=== PATIENT | female | born 1995 | race Caucasian/White ===

== ENCOUNTER 2016-07-09 22:43 | Inpatient (IN) | payer MEDICAID ==
[2016-04-22 22:06] VITALS: BMI 27.4
[2016-07-09] MEDS ORDERED: Vaccine Screening Complete SCH (23:00)
[2016-07-09] MEDS ORDERED: BUTORPHANOL 1 MG/ML VIAL IV PRN (23:07)
[2016-07-09] MEDS ORDERED: OXYTOCIN 1,000 ML IV ONE (23:18)
[2016-07-09] MEDS ORDERED: LIDOCAINE 1% 30 ML VIAL (PRESERVATIVE FREE) ONE (23:18)
[2016-07-09 23:28] LABS: AUTOMATED BASOPHIL 0.2 % (0-2); AUTOMATED EOSINOPHIL 0.8 % (0-5); AUTOMATED LYMPH 17.1 % (17-44); AUTOMATED MONOCYTE 10.5 % (3-10); AUTOMATED NEUTROPHIL 71.4 % (45-76); MPV 8.5 fL (7.4-10.4)
[2016-07-09] MEDS ORDERED: LR 1,000 ML IV SCH (23:45)
[2016-07-10] MEDS ORDERED: Fentanyl/Bupivacaine 100 ML EPI ONE (00:20)
--- NOTE | 2016-07-10 00:22 | HISTPHYS ---
- HISTORY OF PRESENT ILLNESS Age: 21 Estimated Due Date: 07/16/16 Gestational Age: 39 : 4 Para: 3 Patient Presents to:: Labor & Delivery Presents for:: Leaking Fluid (since 6 pm) Current : No Complications, GBS - - REVIEW OF SYSTEMS Reports/Denies: Reports: Contractions (Strong and regular), Movement ( Normal ), Leaking Fluid (clear). Denies: Vaginal Bleeding, Fever Pain: Reports: Abdominal, Back - ALLERGIES Allergies Allergy/AdvReac Type Severity Reaction Status Date / Time Penicillins Allergy Unknown Unknown Verified 07/09/16 22:58 - PAST MEDICAL HISTORY Reports: Depression (Post ) - PAST SURGICAL HISTORY Reports: None - FAMILY HISTORY Family History: Noncontributory - SOCIAL HISTORY Travel Outside of [place] in the Last 3 Months?: No Smoking Status: Former smoker Social History: Denies: Alcohol Use Marital Status: - GENITOURINARY HISTORY Gynecologic History: Reports: None HX : 4 Para: 3 Live Deliveries (# of pregnancies resulting in a live ): 3 Hx Multiple Births: No 2 Infant Sex: Female Delivery Type: Vaginal Weight: 6-3 Weeks Gestation: 38-5 3 Infant Sex: Male Delivery Type: Vaginal Weight: 6-11 Weeks Gestation: 38-4 1 Infant Sex: Female Delivery Type: Vaginal Weight: 6-15 Weeks Gestation: 40 - PHYSICAL EXAM Vital Signs:: Temperature: 98.0 F (07/09/16 22:43) HR: 108 (07/09/16 22:43) RR: 20 (07/09/16 22:43) BP: 128/70 (07/09/16 22:43) Pulse Ox: () GENERAL: Alert, Oriented, Distress (Moderate) ABDOMEN: Gravid, Non-Distended, Non-Tender, Soft Fundal Height (cm): 39 GENITOURINARY: Normal. negative: Lesions, Mass, Rash, Swelling, Discharge MUSCULOSKELETAL: Normal. negative: Atrophy EXTERMITIES: Moves All Extremeties. negative: Pain/Tenderness Dilation (cm): 4 Effacement (%): 80 Station: -2 Heart Rate: 130 Reactive, Minimal Variability. negative: Decelerations Contractions: Regular Amniotic Fluid: Clear - ASSESSMENT (ACTIVE PROBLEMS) (1) SROM (spontaneous rupture of membranes) Acute [id number] - Present on Admission: Yes - PLAN Admit, Pain Management
[2016-07-10] MEDS ORDERED: METOCLOPRAMIDE 10 MG/2 ML VIAL IV PRN (01:08)
[2016-07-10] MEDS ORDERED: LR 500 ML IV ONE (01:08)
[2016-07-10] MEDS ORDERED: ONDANSETRON HCL 4 MG/2 ML VIAL IV PRN (01:08)
[2016-07-10] MEDS ORDERED: DIPHENHYDRAMINE 50 MG/ML VIAL IV PRN (01:08)
[2016-07-10] MEDS ORDERED: NALOXONE 0.4 MG/ML AMPULE IV PRN (01:08)
[2016-07-10] MEDS ORDERED: LR 500 ML IV PRN (01:08)
[2016-07-10] MEDS ORDERED: EPHEDrine 50 MG/ML VIAL IV PRN ×2 (01:08→01:11)
--- NOTE | 2016-07-10 01:10 | HIM.ANES ---
Anesthesia Evaluation & Plan Diagnoses: labor pain Consented Procedure: labor epidural Surgeon:: Aiden Fine - Focused Review of Systems Cardiac History: No: Hx Cardiac Disorders HEENT: No: Loose/Decaying Teeth, Removable Dental Work, Other HEENT Problems Respiratory: No: Hx Asthma Gastrointestinal: No: Hx Liver disease, Hx Gastrointestinal Disorders Neurological/Musculoskeletal: No: Hx Syncope, Hx Neurological Disorders Psychological: No Hx Mental/Emotional Disorders Blood/Autoimmune: No: Hx Blood Transfusions, Hx Anemia, Hx AIDS, Hx Sickle Cell Disease Smoking Status: Former smoker Past Social History: Denies: Alcohol Use - Focused Physical Exam NPO since: after Midnight Mallampati: Class I Thyromental Distance: Greater than 3 Neck: Full Range of Motion Dental: Normal - no significant findings Cardiovascular/Chest: Normal (RRR no mumurs or rubs.) Respiratory: Lungs clear. negative: Rhonchi, Wheezing Any problems with anesthesia, including nausea and vomiting?: No Any relatives with a history of Malignant Hyperthermia?: No Does patient have a history of Malignant Hyperthermia?: No Beta Ludy given (if appropriate): N/A Does the patient have a history of Motion Sickness-: No Other: Problem List Problem Status Onset SROM (spontaneous rupture of membranes) Acute Vaginal delivery Active 38 weeks gestation of Acute False labor Acute Term of male Acute CBC/BMP/Other 07/09/16 23:17 Allergies Allergy/AdvReac Type Severity Reaction Status Date / Time Penicillins Allergy Unknown Unknown Verified 07/09/16 22:58 Home Medications Medication Instructions Recorded Last Taken Type No Home Medications 07/06/16 Unknown History Height and Weight Patient's height 5 ft 2 in Patient's weight 79.379 kg BMI 27.4 Vital Signs Temperature 98.0 F 07/09/16 22:43 Pulse Rate 108 07/09/16 22:43 Respiratory Rate 20 07/09/16 22:43 Blood Pressure 128/70 07/09/16 22:43 Pulse Oxygen Saturation METS - Level of Activity: Climbing stairs(1 flight),walking level ground, running short distance - Anesthetic Plan Anesthesia Type: Epidural ASA Class: 2 -: I have examined this patient and reviewed the medical record. The patient has been assessed prior to anesthesia. Risks and benefits of anesthesia and anesthetic technique options have been discussed and all questions answered. The patient accepts the risk and desires me to proceed with the planned anesthetic.
--- NOTE | 2016-07-10 01:11 | HIM.ANESP ---
Procedure Note DATE OF PROCEDURE: 07/10/16 PREOPERATIVE DIAGNOSIS: Labor Pain Control. POSTOPERATIVE DIAGNOSIS: Same PROCEDURE: Epidural PERFORMING PROVIDER: Ashely Ramirez MD DIAGNOSIS: Labor SURGEON: Rody TIME OUT: 47 Anesthesia START time: 47 Anesthesia STOP (Delivery) Time : 02:30 MEDICATIONS: INF Bupivacaine 0.125% + Fentanyl 3mcg/ml ml/hr NEEDLE: Tuohy 17G STERILE BARRIERS: sterile x 3, mask, sterile gloves. APPROACH: Midline ATTEMPTS:1 COMPLICATIONS: None. BLOOD LOSS: 0 cubic centimeters. 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 Epidural Risk, benefits and alternatives of the procedure were explained and questions answered. Informed consent was obtained, confirmed with patient and on chart. Time out was performed. Contraction, Pulse oximetry, EKG and BP monitoring were established. The patient is a sitting position and lumbar area was prepped and draped in a sterile manner. Skin anesthesia was obtained with 1% Xylocaine infiltration. The Epidural was done in the usual manner. A Tuohy needle was inserted with loss of resistance to NS @ 6cm. Local anesthetic was injected in incremental volumes with negative aspirations throughout, Bolus dose: Lidocaine 1 % 5 cc. There was no pain on injection. Epidural catheter threaded 5 cm into epidural space. Test dose Lidocaine 1.5 % with epinephrine 1:200,000, 3 ml via epidural catheter. Negative test dose. SaO2 98% EKG SR Loading Dose 0 mcg/ml Fentanyl Infusing Dose Bupivacaine 0.125% + Fentanyl 3mcg/ml ml/hr See Watch Child Record (chart) Patient tolerated the procedure well without complications.
[2016-07-10] MEDS ORDERED: Fentanyl/Bupivacaine 100 ML EPI SCH (02:00)
[2016-07-10] MEDS ORDERED: AMMONIA SPIRITS AMPULE NAS ONE (02:28)
--- NOTE | 2016-07-10 02:48 | OBDELNOTE ---
Delivery Note - Problem/Diagnosis (1) SROM (spontaneous rupture of membranes) Status: Acute (2) 39 weeks gestation of Status: Acute (3) Vaginal delivery Status: Active - Admitting Diagnosis Reason for Visit: Contractions, Leaking Fluid Admission Date: 07/09/16 Admission time: 22:59 Gestational Age: 39 - Procedures Procedure(s): None Labor Anesthesia/Analgesia: IV Medication, Epidural Date: 07/10/16 Time: 02:30 Spontaneous Vaginal Delivery Presentation: Vertex Episiotomy: None Laceration: None EBL: 200 Fluid: Clear Placenta: Spontaneous Description: Normal - Procedures Procedures: None - Infant Data Order: Novak Infant Sex: Male Weight: 3.232 kg (1min): 8 (5min): 9 Feeding Plans for : Breast Plans Circumcision: Yes Bison Complications: No Complications Bison to:: LDRP/Mother's Room - /Operative Complications /Op Complications: None Discharge Planning - REASON FOR ADMISSION Patient Presents to:: Labor & Delivery Reason for Visit: Leaking Fluid (since 6 pm) - DISCHARGE INSTRUCTIONS Prescriptions: Hydrocodone Bit/Acetaminophen [Lortab 5/325] 1 - 2 tab PO Q4H PRN #30 tab PRN Reason: Pain Ibuprofen Tablet [Motrin] 800 mg PO Q6-8H PRN #30 tab PRN Reason: Pain
--- NOTE | 2016-07-10 02:50 | PCM.DCS92 ---
<Aiden Fine - Last Filed: 07/10/16 02:49> - Primary/Secondary Discharge Diagnoses (1) SROM (spontaneous rupture of membranes) Acute [id number] - Present on Admission: Yes (2) 39 weeks gestation of Acute Z3A.39 - 39 WEEKS GESTATION OF Present on Admission: Yes (3) Vaginal delivery Active O80 - ENCOUNTER FOR FULL-TERM UNCOMPLICATED DELIVERY Present on Admission: No - HOSPITAL COURSE /Op Complications: None - DISCHARGE INSTRUCTIONS Discharge Disposition: Home Discharge Condition: Good Cognitive Discharge Status: Unimpaired Fuctional Discharge Status: Independent Patient Leaving with Prescriptions?: Yes Prescriptions: Hydrocodone Bit/Acetaminophen [Lortab 5/325] 1 - 2 tab PO Q4H PRN #30 tab PRN Reason: Pain Ibuprofen Tablet [Motrin] 800 mg PO Q6-8H PRN #30 tab PRN Reason: Pain - Diet Diet at Discharge: Regular - Activity Activity: No Heavy Lifting, Pelvic Rest, No Driving No Driving for: While using pain medications - Instructions Call Physician for: Severe Abdominal Cramps, Foul Smelling Discharge, Pain/ Redness in Calf/Leg, Soaking Pad in 1 hr, Temperature Above 100.4 - Incision Incision, Lacerations, or Tears: No - DC Summary Notes Discharge Medications: *See "Discharge Medication List" for a complete list of Home Medications and Discharge Medications.* Obstetric Hospital Course - Admitting Diagnosis Reason for Visit: Contractions, Leaking Fluid Admission Date: 07/09/16 Admission time: 22:59 Gestational Age: 39 - Procedures Procedure(s): None Labor Anesthesia/Analgesia: IV Medication, Epidural Date: 07/10/16 Time: 02:30 Spontaneous Vaginal Delivery Presentation: Vertex Episiotomy: None Laceration: None EBL: 200 Fluid: Clear Placenta: Spontaneous Description: Normal - Procedures Procedures: None - Data Order: Novak Sex: Male Weight: 3.232 kg (1min): 8 (5min): 9 Feeding Plans for : Breast Plans Circumcision: Yes Complications: No Complications to:: LDRP/Mother's Room - /Operative Complications /Op Complications: None <Miles Velasquez - Last Filed: 07/12/16 10:10> - Primary/Secondary Discharge Diagnoses (1) care following vaginal delivery Acute Z39.2 - ENCOUNTER FOR ROUTINE FOLLOW-UP - Instructions Discontinue use of:: Alcohol, All Illegal Substances, All Types of Tobacco - DC Summary Notes Discharge Medications: *See "Discharge Medication List" for a complete list of Home Medications and Discharge Medications.*
[2016-07-10] MEDS ORDERED: BISACODYL 10 MG SUPP PR PRN (02:56)
[2016-07-10] MEDS ORDERED: ACETAMINOPHEN 325 MG/TAB TABLET PO PRN (02:56)
[2016-07-10] MEDS ORDERED: SODIUM CHLORIDE 0.9% 3 ML FLUSH FLUSH PRN (02:56)
[2016-07-10] MEDS ORDERED: DIBUCAINE OINTMENT 1 OZ TUBE TOP PRN (02:56)
[2016-07-10] MEDS ORDERED: OXYTOCIN 1,000 ML IV ONE (02:56)
[2016-07-10] MEDS ORDERED: HYDROCORTISONE 25 MG SUPP PR PRN (02:56)
[2016-07-10] MEDS ORDERED: Pharmacy Order Set Alert SCH (03:00)
[2016-07-10] MEDS: OXYCODONE HCL 5 MG TABLET PO PRN ×5 (04:51→23:17)
[2016-07-10] MEDS: IBUPROFEN 800 MG TAB PO SCH ×4 (04:51→23:17)
[2016-07-10] MEDS ORDERED: MEASLES,MUMPS,RUBELLA VACCINE SQ ONE (08:00)
[2016-07-10] MEDS ORDERED: PNEUMOCOCCAL 0.5 ML VIAL IM ONE (08:00)
[2016-07-10] MEDS: SODIUM CHLORIDE 0.9% 3 ML FLUSH FLUSH SCH (09:01)
[2016-07-10] MEDS: LANOLIN OINTMENT 0.25 OZ TUBE TOP PRN (09:02)
[2016-07-10] MEDS ORDERED: LIDOCAINE 2% 10 ML (PRESERVATIVE FREE) VIAL INF ONE (10:00)
--- NOTE | 2016-07-10 11:33 | OBGYNPROG ---
- Subjective Post Day: 0 Reports: Ambulating, Tolerating Regular Diet, Voiding Freely, Light Bleeding. Denies: Complaints, Heavy Bleeding Pain: Reports: Well Managed - Objective Vital Signs: Temperature: 97.5 F (07/10/16 09:13) HR: 70 (07/10/16 09:13) RR: 18 (07/10/16 09:13) BP: 110/56 (07/10/16 09:13) Pulse Ox: () General: Alert, Oriented, No Acute Distress ABDOMEN: Non-Distended, Non-Tender, Soft Fundus: At Umbilicus, Firm. Denies: Tender Lochia: Moderate EXTERMITIES: Moves All Extremeties. Denies: Pain/Tenderness OBGYN Progress Note - ASSESSMENT (1) SROM (spontaneous rupture of membranes) Status: Acute Code(s): [id number] - (2) 39 weeks gestation of Status: Acute Code(s): Z3A.39 - 39 WEEKS GESTATION OF (3) Vaginal delivery Status: Active Code(s): O80 - ENCOUNTER FOR FULL-TERM UNCOMPLICATED DELIVERY Comment: Doing well - PLAN Routine Care
--- NOTE | 2016-07-10 17:41 | SC.ANESPOS ---
Post-Anesthesia Note LOC: Fully Awake Post-Anesthesia Assessment: Awake, Returned to Baseline, Hemodynamically Stable , Pain Control Adequate Phase I & II Recovery Complete: Yes Apparent Anesthesia Complication: No : N - Vital Signs Blood Pressure: 83/44 Pulse: 63 Resp Rate: 18 Temp: 97.7 F
[2016-07-11] MEDS: OXYCODONE HCL 5 MG TABLET PO PRN ×2 (03:04→11:03)
[2016-07-11] MEDS: IBUPROFEN 800 MG TAB PO SCH ×3 (07:12→19:23)
--- NOTE | 2016-07-11 07:18 | OBGYNPROG ---
- Subjective Post Day: 1 Reports: Ambulating, Out of Bed, Voiding Freely, Moderate Lochia. Denies: Tolerating Regular Diet (unable to keep solids down all day yesterday (did not tell nurses), keeping liquids down without problem), Headache, Palpitations, Chest Pain, Shortness of Breath Pain: Reports: Well Managed (but right thigh pain, no calf pain, slight tingling in right thigh since delivery) - Objective Vital Signs: H&H Results 07/09/16 23:17 Hgb 10.2 L Hct 30.7 L Laboratory Results - last 24 hr 07/09/16 23:17 RPR Nonreactive Last Vital Signs Temp 98.0 F 07/11/16 05:33 Pulse 65 07/11/16 05:33 Resp 18 07/11/16 05:33 BP 90/44 L 07/11/16 05:33 Pulse Ox General: Alert, Oriented, No Acute Distress Cardiovascular/Chest: Normal Respiratory: negative: Accessory Muscle Use Fundus: Firm. Denies: Tender MUSCULOSKELETAL: Normal EXTERMITIES: Moves All Extremeties. Denies: Edema FEDERICO'S SIGN: Denies: Bilateral OBGYN Progress Note - ASSESSMENT (1) care following vaginal delivery Status: Acute Code(s): Z39.2 - ENCOUNTER FOR ROUTINE FOLLOW-UP - PLAN Routine Care, Supportive Care pt must be able to tolerate regular diet prior to discharge home. pain in leg likely from positioning during pushing for delivery. no signs of dvt. supportive care discussed and patient reassured.
[2016-07-11] MEDS: LANOLIN OINTMENT 0.25 OZ TUBE TOP PRN (12:50)
[2016-07-11] MEDS ORDERED: ONDANSETRON HCL 4 MG/2 ML VIAL IV PRN (14:02)
[2016-07-12] MEDS: IBUPROFEN 800 MG TAB PO SCH ×2 (01:33→07:34)
[2016-07-12 06:30] VITALS: BP 96/54; PULSE 64; TEMP 98
[2016-07-12] MEDS: LR 1,000 ML IV SCH ×2 (07:34→10:38)
[2016-07-12] MEDS: SODIUM CHLORIDE 0.9% 3 ML FLUSH FLUSH SCH (07:34)
--- NOTE | 2016-07-12 09:33 | DIRPT ---
CLINICAL DATA: Right calf pain. state. EXAM: RIGHT LOWER EXTREMITY VENOUS DOPPLER ULTRASOUND TECHNIQUE: Rogel-scale sonography with graded compression, as well as color Doppler and duplex ultrasound were performed to evaluate the lower extremity deep venous systems from the level of the common femoral vein and including the common femoral, femoral, profunda femoral, popliteal and calf veins including the posterior tibial, peroneal and gastrocnemius veins when visible. The superficial great saphenous vein was also interrogated. Spectral Doppler was utilized to evaluate flow at rest and with distal augmentation maneuvers in the common femoral, femoral and popliteal veins. COMPARISON: None. FINDINGS: Contralateral Common Femoral Vein: Respiratory phasicity is normal and symmetric with the symptomatic side. No evidence of thrombus. Normal compressibility. Common Femoral Vein: No evidence of thrombus. Normal compressibility, respiratory phasicity and response to augmentation. Saphenofemoral Junction: No evidence of thrombus. Normal compressibility and flow on color Doppler imaging. Profunda Femoral Vein: No evidence of thrombus. Normal compressibility and flow on color Doppler imaging. Femoral Vein: No evidence of thrombus. Normal compressibility, respiratory phasicity and response to augmentation. Popliteal Vein: No evidence of thrombus. Normal compressibility, respiratory phasicity and response to augmentation. Calf Veins: No evidence of thrombus. Normal compressibility and flow on color Doppler imaging. Superficial Great Saphenous Vein: No evidence of thrombus. Normal compressibility and flow on color Doppler imaging. Venous Reflux: None. Other Findings: None. IMPRESSION: No evidence of deep venous thrombosis. Electronically Signed By: Julius Billy On: 07/12/2016 09:30
--- NOTE | 2016-07-12 10:01 | OBGYNPROG ---
- Subjective Post Day: 2 Reports: Complaints, Tolerating Regular Diet. Denies: Nausea, Vomitting Pain: Reports: Well Managed - Objective Vital Signs: Last Vital Signs Temp 98.0 F 07/12/16 06:28 Pulse 64 07/12/16 06:28 Resp 18 07/12/16 06:28 BP 96/54 L 07/12/16 06:28 Pulse Ox 99 07/12/16 06:28 EXAM: RIGHT LOWER EXTREMITY VENOUS DOPPLER ULTRASOUND TECHNIQUE: Rogel-scale sonography with graded compression, as well as color Doppler and duplex ultrasound were performed to evaluate the lower extremity deep venous systems from the level of the common femoral vein and including the common femoral, femoral, profunda femoral, popliteal and calf veins including the posterior tibial, peroneal and gastrocnemius veins when visible. The superficial great saphenous vein was also interrogated. Spectral Doppler was utilized to evaluate flow at rest and with distal augmentation maneuvers in the common femoral, femoral and popliteal veins. COMPARISON: None. FINDINGS: Contralateral Common Femoral Vein: Respiratory phasicity is normal and symmetric with the symptomatic side. No evidence of thrombus. Normal compressibility. Common Femoral Vein: No evidence of thrombus. Normal compressibility, respiratory phasicity and response to augmentation. Saphenofemoral Junction: No evidence of thrombus. Normal compressibility and flow on color Doppler imaging. Profunda Femoral Vein: No evidence of thrombus. Normal compressibility and flow on color Doppler imaging. Femoral Vein: No evidence of thrombus. Normal compressibility, respiratory phasicity and response to augmentation. Popliteal Vein: No evidence of thrombus. Normal compressibility, respiratory phasicity and response to augmentation. Calf Veins: No evidence of thrombus. Normal compressibility and flow on color Doppler imaging. Superficial Great Saphenous Vein: No evidence of thrombus. Normal compressibility and flow on color Doppler imaging. Venous Reflux: None. Other Findings: None. IMPRESSION: No evidence of deep venous thrombosis. General: Alert, Oriented, No Acute Distress HEENT: Normal ABDOMEN: Non-Distended, Non-Tender, Soft Fundus: U - 1 MUSCULOSKELETAL: Normal EXTERMITIES: Moves All Extremeties FEDERICO'S SIGN: Denies: Bilateral OBGYN Progress Note - ASSESSMENT (1) care following vaginal delivery Status: Acute Code(s): Z39.2 - ENCOUNTER FOR ROUTINE FOLLOW-UP - PLAN Discharge
[2016-07-12] MEDS ORDERED: MEASLES,MUMPS,RUBELLA VACCINE SQ ONE (12:00)
[2016-07-12] MEDS ORDERED: Vaccine Screening Complete SCH (12:00)
[2016-07-12] MEDS ORDERED: PNEUMOCOCCAL 0.5 ML VIAL IM ONE (12:00)
== END 2016-07-12 12:06 | disposition home or self-care (01) | DRG 775 ==
LOC: LD 22:43 → MASU 23:03
PROVIDERS: ADMIT Obstetrics & Gynecology; ATTEND Obstetrics & Gynecology
PROC: 10E0XZZ Delivery of Products of Conception, External Approach (ICD-10-PCS; principal; 2016-07-10)
PROC: 3E0S3CZ (ICD-10-PCS; 2016-07-10)
DX: O80 Encounter for full-term uncomplicated delivery (principal); Z23 Encounter for immunization; Z3A.39 39 weeks gestation of pregnancy; Z37.0 Single live birth; Z87.891 Personal history of nicotine dependence
CPT/HCPCS: 59400; 62318; 81002; 83986; 85014; 85018; 85025; 86592; 86900; 86901; 90471; 90707; 90732; 96361; 96365; 96366; 96374; J0595; J2001; J2405; J2590; J3490